=== PATIENT | female | born 1995 | race Caucasian/White ===

== ENCOUNTER 2017-08-23 15:35 | Emergency (ER) | payer SELFPAY ==
--- NOTE | 2017-08-23 16:32 | EDM.PDOC ---
ED HPI GENERAL MEDICAL PROBLEM - General Chief Complaint: Lower Extremity Injury/Pain Stated Complaint: SLEDDING ACCIDENT Time Seen by Provider: 08/23/17 16:27 Source of Information: Reports: Patient, Family, RN Notes Reviewed History Limitations: Reports: No Limitations - History of Present Illness INITIAL COMMENTS - FREE TEXT/NARRATIVE: 22-year-old female presents to the emergency department day complaint of left knee pain, she injured herself while sledding she is unsure of the exact mechanism of injury but she now has pain on the medial aspect of her left knee she was able to ambulate - Related Data Allergies Allergy/AdvReac Type Severity Reaction Status Date / Time No Known Allergies Allergy Verified 08/23/17 16:01 Home Meds: Home Meds NK [No Known Home Meds] 08/23/17 [History] Past Medical History - Past Health History Medical/Surgical History: Denies Medical/Surgical History Social & Family History - Tobacco Use Smoking Status *Q: Never Smoker - Caffeine Use Caffeine Use: Reports: None - Recreational Drug Use Recreational Drug Use: No Review of Systems - Review of Systems Review Of Systems: See Below Musculoskeletal: Reports: Leg Pain, Joint Pain (Left knee) Skin: Reports: No Symptoms Neurological: Reports: No Symptoms ED EXAM, GENERAL - Physical Exam Exam: See Below Free Text/Narrative:: Examination of left knee I don't appreciate any erythema there is no edema noted she is tender to palpation on the medial aspect there is some joint laxity noted with a valgus maneuver varus maneuver is negative Abran's is negative an anterior drawer is also negative Exam Limited By: No Limitations General Appearance: Alert, WD/WN, No Apparent Distress Course - Vital Signs Last Recorded V/S: Last Vital Signs Temp 96.9 F 08/23/17 16:03 Pulse 74 08/23/17 16:03 Resp 14 08/23/17 16:03 BP 152/78 H 08/23/17 16:03 Pulse Ox 96 08/23/17 16:03 - Orders/Labs/Meds Orders: Active Orders 24 hr Category Date Time Status Knee 3V Lt [CR] Stat Exams 08/23/17 16:30 Taken DME for Discharge [COMM] Per Unit Routine Oth 08/23/17 17:00 Ordered Departure - Departure Time of Disposition: 17:02 Disposition: Home, Self-Care 01 Condition: Good Clinical Impression: Left knee pain Qualifiers: Chronicity: acute Qualified Code(s): M25.562 - Pain in left knee - Discharge Information Referrals: PCP,None [Primary Care Provider] - Forms: ED Department Discharge Additional Instructions: Use ibuprofen for baseline pain control, use hydrocodone for breakthrough pain, continue to use crutches and the knee immobilizer for comfort, please call in the morning to the orthopedic clinic for further evaluation - My Orders Last 24 Hours: My Active Orders 08/23/17 16:30 Knee 3V Lt [CR] Stat 08/23/17 17:00 DME for Discharge [COMM] Per Unit Routine - Assessment/Plan Last 24 Hours: My Active Orders 08/23/17 16:30 Knee 3V Lt [CR] Stat 08/23/17 17:00 DME for Discharge [COMM] Per Unit Routine Plan: Assessment Acuity = acute Site and laterality = left knee pain Etiology = secondary to sledding accident Manifestations = none Location of injury = Home Lab values = left knee x-ray I did review films myself I cannot appreciate any acute process, the official read from radiology is pending Plan Because she was having ongoing pain and difficulty with ambulation she was placed in a knee immobilizer and crutches she will follow-up with orthopedics tomorrow hydrocodone 5/325 one tab by mouth 3 times a day when necessary total # 6 provided This note was dictated using [employer] voice recognition software please call with any questions on syntax or yayo.
--- NOTE | 2017-08-24 10:07 | CR ---
No fracture or dislocation
== END 2017-08-23 17:31 | disposition home or self-care (01) ==
LOC: JP.ED 15:35
DX: M25.562 Pain in left knee (principal)
CPT/HCPCS: 29505; 73562-26-LT; 73562-LT; 99283-25; 99284